=== PATIENT | male | born 1960 | race Two or more races ===

== ENCOUNTER 2023-09-30 11:46 | Emergency (ER) | payer BC ==
[~2023-09-30] VITALS: Ht 182.9 cm; Wt 90.7 kg
[2023-09-30] MEDS ORDERED: TIROSINT13 MCG PO (12:02)
[2023-09-30 16:26] LABS: HEMATOCRIT 43.2 % (39.0-48.0); HEMOGLOBIN 14.6 g/dL (13-16.00); MEAN CELL VOLUME 85.9 fL (80.0-100.00); MEAN CORPUSCULAR HEMOGLOBIN 29.1 pg (27.00-32.0); MEAN CORPUSCULAR HGB CONC 33.9 g/dl (32.0-36.0); PLATELET COUNT 242 K/uL (150-450); RED BLOOD COUNT 5.03 M/uL (4.00-6.00); RED CELL DISTRIBUTION WIDTH 14.3 % (11.5-14.5)
== END 2023-09-30 18:11 | disposition home or self-care (01) ==
LOC: ER 11:47
PROVIDERS: General Practice
DX: R10.12 Left upper quadrant pain (principal); Z91.013 Allergy to seafood